=== PATIENT | female | born 1940 | race Caucasian/White ===

== ENCOUNTER → 2022-05-15 | Outpatient (CLI) | payer MEDICARE, BC, OTHER ==
[~2022-05-15] MED LIST: ALEN10TA2 PO; ASPI81TA2 PO; ATOR1TAB21 PO; CALC600T7 PO; COUM1TAB18 PO; FISH1000 PO; LIPI20TA PO; MELO7.5T3 PO; NYAM10003 EXT; PERC10TA PO; PERC7.5T12 PO; TYLE325T5 PO; lisinopril OR; metoprolol OR; multivitamin OR; nitro SL
== END ==
LOC: M RAD 07:29
PROVIDERS: ATTEND Physician Assistant
DX: Z96.641 Presence of right artificial hip joint (principal)
CPT/HCPCS: 78315; A9503

== ENCOUNTER 2023-09-16 10:57 | Day surgery (SDC) | payer MEDICARE, BC ==
[~2023-09-16] VITALS: Ht 160 cm; Wt 76.1 kg
[~2023-09-16 10:57] MED LIST changes: +AMLO1TAB25 PO; +ASPI81TA26 PO; +ATOR40TA75 PO; +CALC600T60 PO; +LISI20TA33 PO; +MELO15TA28 PO; +METO1TAB32 PO; +NITR0.4S14 SL; +THERTAB52 PO; +ZINC50TA26 PO; +propofoL 200 MG/20 ML VIAL As Ordered ONE; +propofoL 500 MG/50 ML VIAL As Ordered ONE
[2023-09-16] MEDS: NS 1,000 ML IV ONE (11:14)
[2023-09-16 12:19] VITALS: TEMP 97
[2023-09-16 12:41] VITALS: BP 111/63; O2SAT 97
== END 2023-09-16 12:50 | disposition home or self-care (01) ==
LOC: M OPP 10:57
PROVIDERS: ATTEND Surgery
DX: R19.5 Other fecal abnormalities (principal); K64.2 Third degree hemorrhoids; Z86.010 Personal history of colon polyps; Z79.02 Long term (current) use of antithrombotics/antiplatelets; Z79.1 Long term (current) use of non-steroidal anti-inflammatories (NSAID); Z79.82 Long term (current) use of aspirin; Z79.899 Other long term (current) drug therapy